=== PATIENT | female | born 1960 | race Caucasian/White ===

== ENCOUNTER 2017-04-21 11:11 | Emergency (ER) | payer BC, SELFPAY | END 2017-04-21 12:17 | disposition home or self-care (01) | PROVIDERS: Emergency Provider Nurse Practitioner; Visit Provider Nurse Practitioner | DX: L02.415 Cutaneous abscess of right lower limb (principal) | CPT/HCPCS: 99201 ==

== ENCOUNTER → 2020-06-16 06:48 | Outpatient (CLI) | payer BC, SELFPAY ==
--- NOTE | 2020-06-16 07:07 | CT_ITS ---
PROCEDURE: CT LUNG SCREENING CLINICAL INDICATION: H/O NICOTINE DEPENDENCE Current smoker 35 pack year smoking history No prior COMPARISON: No exams were available for comparison TECHNIQUE: The exam was performed on a GE Light Speed [address] scanner using 2.90 mGy CTDI. A low dose helical CT CHEST was performed on a multi-detector scanner. All CT scans at the facility use one or more dose reduction, viz: automated exposure control, ma/kV adjustment per patient size (including targeted exams where dose is matched to indication, i.e. head), or iterative reconstruction technique. The LDCT was performed in a facility that meets the criteria for the screening program. Data regarding this exam was submitted to ACR which is an approved registry. The order for this exam indicates that it came as a result of a lung cancer screening counseling shard decision-making visit that included all the elements required of such a visit including smoking cessation. The radiologist interpreting this exam meets the CMS criteria for the LDCT lung cancer screening program. The exam is reported using the Lung-RADS classification scale and reported to the ACR registry. NOTE: This study was performed for the specific purposes of lung cancer screening and is not an alternative to diagnostic chest CT. RADIATION DOSE: CTDI vol(CT dose Index-volume) = 2.90mG DLP (Dose Length Product) = 96.38 mGcm FINDINGS: There is a 4 mm subpleural nodular opacity in the right apex S3 I 14. There are mild atelectatic changes in the left lower lobe. OTHER FINDINGS: Coronary artery calcifications. COPD changes. There is thickening of the right minor fissure anteriorly nonspecific. There are scattered small axillary lymph nodes. IMPRESSION: Lung-RADS Category 2 Benign Appearance or Behavior Follow-up: Continue annual screening with LDCT in 12 months Dictated by: Benton York MD 06/21/2020 08:58 Benton York MD in [place] 06/21/2020 08:58
== END ==
PROVIDERS: PCP Internal Medicine Adolescent Medicine; Visit Provider Internal Medicine Adolescent Medicine
DX: Z87.891 Personal history of nicotine dependence (principal); Z12.2 Encounter for screening for malignant neoplasm of respiratory organs
CPT/HCPCS: 71271

== ENCOUNTER → 2020-07-07 08:10 | Outpatient (CLI) | payer BC, SELFPAY ==
[2020-07-07 10:09] LABS: Coronavirus 19 IgG Antibody Positive (Negative); Coronavirus 19 IgM Antibody Negative (Negative)
== END ==
PROVIDERS: Visit Provider Internal Medicine Gastroenterology
DX: Z01.818 Encounter for other preprocedural examination (principal); Z20.822 Contact with and (suspected) exposure to COVID-19; Z12.11 Encounter for screening for malignant neoplasm of colon
CPT/HCPCS: 36415; 86328

== ENCOUNTER 2020-07-09 06:44 | Day surgery (SDC) | payer BC, SELFPAY ==
[2020-07-02 13:29] VITALS: BMI 22.8
[2020-07-09] VITALS (7 sets, daily range): BP systolic 93–127; BP diastolic 65–83; PULSE 75–95; RESP 18; TEMP 36.3; O2SAT 96–97
--- NOTE | 2020-07-09 08:01 | P.PN_ITS ---
[facility] Anesthesia Checklist - Structural Data Admitted From: Home Planned Operative Procedure/s: colonoscopy Consent for Planned Operative Procedure(s) Verified: Yes - Airway Assessment C-Spine Mobility Assessed: Yes TMJ Mobility Assessed: Yes Dentition: Good Dentition - Neurological Assessment Level of Consciousness: Awake, Alert, Appropriate - Anesthesia Plan Anesthesia Risk discussed: Yes Anesthesia Plan: Verified ASA Class: II Anesthesia Type: MAC [facility] History I have reviewed the patient's past medical history: Yes Medical History: Denies:: Cancer, Diabetes Mellitus Type 1, Diabetes Mellitus Type 2, Internal Pacemaker, MRSA, Seizures *Have you ever received a pneumonia vaccine?: No *Have you received a flu vaccine this season?: Yes Anesthesia experience/problems:: none Other Surgeries: No: Pacemaker Amputation: No Fractures: No - *Social History Last grade of school completed: Advanced degree Smoking Status: Current every day smoker Tobacco Type: cigarettes # Packs/Day (cigarettes): 1 Smoking End Date: 06/27/20 Alcohol Intake: never Alcohol Intake Frequency:: holidays/special occasions only Substance Use Type: denies use *Occupational Status:: employed Housing: house Household Members: none *Travel in the last 8 weeks: None Family Hx:: Cancer
--- NOTE | 2020-07-09 08:32 | P.PCN_ITS ---
[facility] Procedure Note Procedure Note:: Colonoscopy Procedure Report: Colonoscopy with cold snare polypectomy Endoscopist: Los Sosa II, MD Referring physician: Loco Albert MD Date of Procedure: July 09, 2020 Equipment: Olympus 190 variable stiffness pediatric colonoscope Sedation: MAC sedation Indication: Mrs. Rios is a 60-year-old female who is here for screening colonoscopy. Her last colonoscopy was 32 years ago. She reports no abdominal pain, weight loss, change in her bowel habits or rectal bleeding. She reports no family history of colon cancer. Procedure: Prior to the procedure, a history and physical exam was performed, and patient's medications and allergies were reviewed. The risks, benefits and alternatives of the sedation and procedure were discussed with the patient. All questions were answered and informed consent was obtained. The patient was brought to the procedure room. Patient identification and proposed procedure were verified by the physician and the nurse. The patient was placed in a left lateral decubitus position and the scope was passed under direct vision. Throughout the procedure , the patient's blood pressure, pulse, and oxygen saturations were monitored continuously. The colonoscopy was accomplished without difficulty. The patient tolerated the procedure well. Findings: On digital rectal examination there was normal rectal tone. There were no external hemorrhoids. The colonoscope was introduced through the anal canal to the rectum and advanced to the cecum. The ileocecal valve and appendiceal orifice were identified. The scope was advanced a short distance into the ileum which appeared grossly normal. The scope was then withdrawn into the colon. There were 2 polyps (ascending x1 (4 mm) and descending x1 (4 mm)) which were both removed via cold snare polypectomy. The remainder of the cecum, ascending and transverse colon were normal. There were scattered diverticuli throughout the descending and sigmoid colon (LEFT colon). The rectum itself was normal. Upon retroflexion within the rectum there were 1-2 internal hemorrhoids. The preparation was excellent throughout with [place] Preparation Score of 9. The cecal time was 12 minutes. Impression: 1. Diminutive colonic polyps x2 2. Left-sided diverticulosis 3. Grade 1-2 internal hemorrhoids Plan: I will follow up the polyp pathology and recommend repeat colonoscopy again in 7-10 years based upon the polyp histology. I would encourage bulking fiber supplementation on a long-term daily maintenance basis.
== END 2020-07-09 09:35 | disposition home or self-care (01) ==
LOC: OUTP 06:45
PROVIDERS: PCP Internal Medicine Adolescent Medicine; Visit Provider Internal Medicine Gastroenterology
PROC: 0DJD8ZZ Inspection of Lower Intestinal Tract, Via Natural or Artificial Opening Endoscopic (ICD-10-PCS; CPT 45378; principal; 2020-07-09 08:00)
DX: Z12.11 Encounter for screening for malignant neoplasm of colon (principal); K63.5 Polyp of colon; K57.30 Diverticulosis of large intestine without perforation or abscess without bleeding; K64.0 First degree hemorrhoids; Z72.0 Tobacco use; Z88.2 Allergy status to sulfonamides
CPT/HCPCS: 45385

== ENCOUNTER 2020-11-28 14:23 | Emergency (ER) | payer BC, SELFPAY ==
[2020-11-28 15:05] VITALS: BP 136/85; PULSE 90; RESP 20; TEMP 36.9; O2SAT 97; BMI 21.6
[2020-11-28 15:41] VITALS: BP 136/85; PULSE 90; RESP 20; TEMP 36.9; O2SAT 97
--- NOTE | 2020-11-28 15:41 | HMH.EDUTC ---
[facility] Disposition Clinical Impression: COVID-19 virus test result unknown Otitis media Qualifiers: Otitis media type: suppurative Chronicity: acute Laterality: right Recurrence: non-recurrent Spontaneous tympanic membrane rupture: without spontaneous rupture Qualified Code(s): H66.001 - Acute suppurative otitis media without spontaneous rupture of ear drum, right ear Disposition: Home, Self-Care Condition on Discharge: Good Instructions: Middle Ear Infection, DI for COVID-19 (Suspected or Confirmed ), COVID-19: Protecting Yourself When You're at High Risk Additional Instructions: Start antibiotic as soon as possible and be sure to take as ordered for full length of time even though he should start feeling better in 24-48 hours. Tylenol or Motrin as needed for pain or fever Encourage fluids, water, Gatorade, Powerade, Pedialyte if infant/toddler/child Warm compresses often helps when placed over ear Return immediately for new or worsening symptoms no noticeable improvement in 48-72 hours and in 10-14 days to ensure the ears are return to baseline. Follow-up with primary care covid swab was sent to lab, call later today for results. self isolate until test results are known to be negative Prescriptions: cephALEXin [Cephalexin 500mg Tab] 500 mg PO BID 7 Days #14 tab Prescription Printed Fluconazole [Diflucan 100mg tablet] 100 mg PO ONCE 1 Days #1 tab Prescription Printed Referrals: Charlie Olivo MD [Primary Care Provider] - Time of Disposition: 16:04 Medical Decision Making - Piter Inquiry Pt receiving controlled substance: No Vital Signs: 11/28/20 15:05 11/28/20 15:41 Temperature 98.5 F 98.5 F Temperature Source Oral Pulse Rate 90 Pulse Rate [Right Brachial] 90 Respiratory Rate 20 20 Blood Pressure 136/85 Blood Pressure [Right Arm] 136/85 Blood Pressure Mean [Right Arm] 102 Blood Pressure Source [Right Arm] Automatic Cuff Blood Pressure Position [Right Arm] Sitting 02 Sat by Pulse Oximetry 97 Oxygen Delivery Method Room Air - Lab Data Lab Results 11/28/20 15:21: Strep Scn Rapid Clinic Negative Orders (Tests/Meds): ORDERS Category Date Time Status Covid-19 Nasal PCR ([facility]) Routine Lab 11/28/20 15:20 Received Strep Screen Confirmation Stat Micro 11/28/20 15:21 Received [facility] HPI - General Chief complaint: Urgent Treatment Center Stated complaint: covid exposure, symptoms Time Seen by Provider: 11/28/20 15:41 Mode of Arrival: Ambulatory Source of Information: Patient Limitations: No Limitations Description of Symptoms (Recalled from Triage Doc. by RN): COVID TEST D/T EXPOSURE. C/O HEADACHE, SORE THROAT AND COUGH HEENT Symptoms (Recalled from RN notes): Yes Resp Symptoms (Recalled from RN notes): No Skin Symptoms (Recalled from RN notes): No MS Symptoms (Recalled from RN notes): No Functional Status (Recalled from RN notes): WNL - History of Present Illness Provider Complaint: 60 yr old female presents for sore throat, ear pain,cough and body aches. has been exposed to covid - Related Data Previous Rx's Medication Instructions Recorded Fluconazole [Diflucan 100mg tablet] 100 mg PO ONCE 1 Days #1 tab 11/28/20 cephALEXin [Cephalexin 500mg Tab] 500 mg PO BID 7 Days #14 tab 11/28/20 Allergies Allergy/AdvReac Type Severity Reaction Status Date / Time levofloxacin [From LEVAQUIN] Allergy Intermediate Verified 07/09/20 06:56 Sulfa (Sulfonamide Allergy Verified 07/09/20 06:56 Antibiotics) - Worker's Comp Is this a Worker's Comp case?: No [facility] History - Hepatitis A Screen Drug use history?: No High risk sexual behaviors?: No History of sexually transmitted infection?: No Currently employed?: No Childcare worker?: No Do you have indoor plumbing?: Yes Do you have electricity?: Yes Attestation statement:: This patient has been screened for Hepatitis A risk factors. I have reviewed the patient's past medical history: Yes Medical History: D
[2020-11-28 15:42] LABS: UTC Strep Screen (Rapid) Negative (Negative)
== END 2020-11-28 16:10 | disposition home or self-care (01) ==
PROVIDERS: Emergency Provider Nurse Practitioner Family; PCP Internal Medicine Adolescent Medicine
DX: H66.001 Acute suppurative otitis media without spontaneous rupture of ear drum, right ear (principal); F17.210 Nicotine dependence, cigarettes, uncomplicated
CPT/HCPCS: 87880; 99203; G0463; U0003

== ENCOUNTER → 2020-12-13 07:40 | Outpatient (CLI) | payer BC, SELFPAY ==
--- NOTE | 2020-12-13 07:42 | MR_ITS ---
PROCEDURE: MR ANGIO HEAD WO CON CLINICAL INDICATION: HISTORY OF CEREBRAL ANEURYSM COMPARISON: CT HDWO CT HEAD W/O CONTRAST from 01/13/2017 TECHNIQUE: 3D [id number] images are obtained with multi slab reformats. FINDINGS: The vertebral arteries and basilar artery has an unremarkable appearance. There is persistent origin of the right posterior cerebral artery as a normal variant. There is some lobulation along the left aspect of the anterior communicating artery projecting inferiorly. This area measures approximately 3 mm. An anterior communicating artery aneurysm is suspected. This points inferiorly and toward the right. In addition, there is a focal protrusion projecting medially at the supraclinoid portion of the right internal carotid artery. This also is suspicious for an aneurysm measuring approximately 5 mm No AVMs or major intracranial occlusive process evident. Single-shot MRV is unremarkable. 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 Recommend CT angiogram of the head for confirmation. Dictated by: Benton York MD 12/17/2020 11:44 Benton York MD in [place] 12/17/2020 11:44
== END ==
PROVIDERS: PCP Internal Medicine Adolescent Medicine; Visit Provider Internal Medicine Adolescent Medicine
DX: Z86.79 Personal history of other diseases of the circulatory system (principal)
CPT/HCPCS: 70544

== ENCOUNTER → 2021-01-28 16:10 | Outpatient (CLI) | payer BC, SELFPAY | PROVIDERS: Visit Provider Student in an Organized Health Care Education/Training Program | DX: Z01.812 Encounter for preprocedural laboratory examination (principal); Z11.52 Encounter for screening for COVID-19 | CPT/HCPCS: C9803; U0003; U0005 ==

== ENCOUNTER → 2022-04-11 08:02 | Outpatient (POV) | payer BC, SELFPAY | PROVIDERS: Visit Provider Dermatology | DX: Z00.00 Encounter for general adult medical examination without abnormal findings (principal) ==

== ENCOUNTER → 2022-09-05 07:48 | Outpatient (POV) | payer BC, SELFPAY | PROVIDERS: Visit Provider Dermatology | DX: Z00.00 Encounter for general adult medical examination without abnormal findings (principal) ==

== ENCOUNTER 2023-09-06 09:48 | Outpatient (CLI) | payer BC, SELFPAY ==
--- NOTE | 2023-09-06 10:00 | CT_ITS ---
FINAL REPORT CLINICAL HISTORY: SCREENING CURRENT SMOKER 1PPD X45 YEARS FINDINGS: Axial images were obtained from the lung apex to the mid abdomen by computed tomography. Low-dose protocol was utilized. CTDl vol(mGy): 2.90 DLP (mGy-cm): 96.38 FINDINGS: There is no axillary adenopathy. Small mediastinal nodes are noted. There are mild coronary artery calcifications. The heart size is normal. There is no pericardial or pleural effusion. Limited images of the upper abdomen are unremarkable. Lung window images demonstrate mild emphysema and mild scarring. There is a 6 mm nodule at the minor fissure which is likely an intrafissural node. A pleural-based nodule is seen in the lateral right midlung measuring 4 mm. This is best seen on image 45. Several other less than 5 mm nodules are seen. There is a calcified granuloma in the left lower lobe. IMPRESSION: Lung RADS category 2. Recommend 12 month follow-up low-dose chest CT. Reviewed, Interpreted and Dictated by Donal Monroy III, MD Transcribed by Minerva Nath Authenticated and [facility][1]
== END 2023-09-06 23:59 | disposition home or self-care (01) ==
LOC: RAD 09:49
PROVIDERS: PCP Internal Medicine Adolescent Medicine; Visit Provider Internal Medicine Adolescent Medicine
DX: Z87.891 Personal history of nicotine dependence (principal); Z12.2 Encounter for screening for malignant neoplasm of respiratory organs
CPT/HCPCS: 71271

== ENCOUNTER 2025-03-17 14:55 | Outpatient (CLI) | payer BC, SELFPAY ==
--- OUTSIDE RECORDS SUMMARY | 2025-03-17 14:58 | XMS_ITS ---
Author Organization Unknown ENCOUNTERS Encounter Performer Location Date Diagnosis Diagnosis Status Emergency [place] [id number] [facility] [address] [place] [id number] [place]A *Note: Encounters from your own facility or health system may be excluded. Allergies, Adverse Reactions, Alerts Allergen Type Severity Identification Date Sulfa (Sulfonamide Antibiotics) drug allergy 0 [id number] levofloxacin drug allergy 3 [id number] Medications Name Date Quantity Days Supplied GPI Number
--- OUTSIDE RECORDS SUMMARY | 2025-03-17 14:59 | XMS_ITS | Clinical Summary ---
Author Organization [facility] Address [address] [place] [address] Care Team Providers Care Psychologist Experimental Name Role Phone Charlie Olivo MD Primary Care Provider + [phone] Allergies Active Allergy Reactions Criticality Noted Date Comments Levofloxacin Other (See Comments) 09/19/2024 Muscle tenderness Family History Medical History Relation Name Comments Breast cancer Mother Ovarian cancer Neg Hx Relation Name Status Comments Mother Social History Tobacco Use Types Packs/Day Years Used Date Smoking Tobacco: Never Assessed Comments No Sex and Gender Information Value Date Recorded Sex Assigned at Not on file Legal Sex Female 12:10 PM EDT Gender Identity Not on file Sexual Orientation Not on file Plan of Treatment Health Maintenance Due Date Last Done Comments ANNUAL PHYSICAL 1960 Annual Gynecologic Pelvic an d Breast Exam 1960 HEPATITIS C SCREENING 1962 TDAP/TD VACCINES (1 - Tdap) 1981 COLOGUARD 2007 COLON CANCER SCREENING 5 YEA R SIGMOIDOSCOPY 2007 COLONOSCOPY [address] CANCER SCREENING [address] COLONOGRAPHY 2007 FECAL OCCULT BLOOD TEST 2007 FIT Testing (1 year) 2007 Pneumococcal Vaccine 50+ (1 of 1 - PCV) 2012 INFLUENZA VACCINE 11/21/2024 06/22/2023 MAMMOGRAM 09/19/2026 09/19/2024, 08/22, 09/15/2022, Additional history exists ZOSTER VACCINE Completed 04/29/2020, 02/27/2020 Procedures Procedure Name Priority Date/Time Associated Diagnosis Comments MAMMO SCREENING DIGITAL TOMOSYNTHESIS BILATERAL W CAD Routine 09/19/2024 8:25 AM EDT Screening mammogram for breast cancer from Last 3 Months or Most Recently Relevant to Health Maintenance Results * Mammo Screening Digital Tomosynthesis Bilateral With CAD (09/19/2024 8:25 AM EDT) Anatomical Region Laterality Modality Breast N/A Mammography 09/20/2024 10:0 5 AM EDT Impressions 09/20/2024 10:07 AM EDT Negative bilateral mammogram. RECOMMENDATION: Continue annual screening mammography. BI-RADS CATEGORY 1, NEGATIVE. CAD was utilized. The standard false-negative rate of mammography is between 10% and 25%. Complex patterns or increased breast density will markedly elevate the false-negative rate of mammography. A letter, in lay terminology, with the results of this exam will be mailed to the patient. 09/20/2024 10:[address] Atilio Schwab MD on Narrative 09/20/2024 10:07 AM EDT DIGITAL SCREENING MAMMOGRAM WITH TOMOSYNTHESIS HISTORY: Screening Mammography. Low dose full field digital breast tomosynthesis imaging was performed with 2D and 3D acquisitions consisting of bilateral CC and MLO views. Examination is compared to prior examination dating back to 02/16/2015. Examination is read in conjunction with computer aided detection. FINDINGS: There are scattered areas of fibroglandular density. No suspicious masses, microcalcifications or areas of architectural distortion are present. Charlie Olivo MD IMG MAMMOGRAPHY ORDERABLES F inal Result from Last 3 Months or Most Recently Relevant to Health Maintenance Insurance [facility] [id number] [facility] Care Teams Psychologist Experimental Relationship Specialty Start Date End Date Charlie Olivo MD [address] [place] [facility] [address] [place] [address] PCP - General Adolescent Medicine 07/10/19
--- OUTSIDE RECORDS SUMMARY | 2025-03-17 14:59 | XMS_ITS | Clinical Summary ---
Author Organization [facility] Address [address] [place] [address] Care Team Providers Care Timber Deadener Name Role Phone Sofi Nguyễn MD Unavailable [phone] Charlie Olivo MD Primary Care Provider + [phone] Allergies Active Allergy Reactions Criticality Noted Date Comments Levofloxacin Unknown - Patient st ates they do not know rxn details Low 01/25/2017 Medications Multiple Vitamin (multivitamin) capsule Take 1 capsule by mouth 1 (one) time each day. Active omeprazole (PriLOSEC) [address] capsule Take 40 mg by mouth 1 (one) time each day. Do not crush or chew. Active mupirocin (Bactroban) 2 % ointment Apply 1 application topically 2 (two) times a day. Active St French Wort 150 MG tablet Take by mouth 1 (one) time each day. Active [place] Bergamot 650 MG tablet Take by mouth. A ctive omega-3 (Fish Oil) 1000 MG capsule Take 1 capsule (1,000 mg) by mouth 2 (two) times a day with meals. Active Plant Sterols and Stanols (CHOLEST OFF PO) Take by mouth. Activ e Active Problems Problem Noted Date Diagnosed Date Aneurysm 01/25/2017 Family History Medical History Relation Name Comments Diabetes Father Breast cancer Mother Multiple myeloma Mother Relation Name Status Comments Father Mother Social History Tobacco Use Types Packs/Day Years Used Date Smoking Tobacco: Every Day Cigarettes 0.5 30 Smokeless Tobacco: Never Tobacco Cessation:Ready to Q uit: Not Asked; Counseling Given: Not Answered Alcohol Use Standard Drinks/Week Comments Yes 0 (1 standard drink = 0.6 oz pur e alcohol) occasionally Comments Unknown Sex and Gender Information Value Date Recorded Sex Assigned at Not on file Legal Sex Female 7:35 PM EDT Gender Identity Not on file Sexual Orientation Not on file Last Filed Vital Signs Vital Sign Reading Time Taken Comments Blood Pressure 116/77 03/27/2024 2:26 PM EST Pulse 94 03/27/2024 2:26 PM EST Temperature 36.6 C (97.9 F) 02/02/2021 11:15 AM EDT Respiratory Rate 16 02/16/2022 1:29 PM EDT Oxygen Saturation 96% 03/27/2024 2:26 PM EST Inhaled Oxygen Concentration - - Weight 59 kg (130 lb) 03/27/2024 2:26 PM EST Height 162.6 cm (5' 4 ) 03/27/2024 2:26 PM EST Body Mass Index 22.31 03/27/2024 2:26 PM EST Plan of Treatment Health Maintenance Due Date Last Done Comments [facility]-Depression Screening 1962 [facility]-HIV Screening 1962 [facility]-Hepatitis C Screening 1962 [facility]-/Child/Adol SDOH Screenings 1962 [facility]- SDOH Screenings 1980 [facility]-Adult SDOH Screenings 1980 [facility]-DTaP,Tdap,and Td Vaccines (1 - Tdap) 1981 [facility]-Pneumococcal Vaccine: 50+ Years (1 of 2 - PCV) 1981 CT Colonography 2007 Colonoscopy 2007 FIT-DNA 2007 FIT 2007 FOBT 2007 Sigmoidoscopy 2007 [facility]-Colorectal Cancer Screening 2007 [id number] Vaccine ( season) 2024 01/26/2021, 12/29/2020 [facility]-Influenza Vaccine (#1) 2024 06/22/2023 [facility]-Breast Cancer Screening 09/18/202508/22, 09/19/2023, 09/15/2022, Additional history exists [facility]-RSV Vaccine: 60+ Years or (1 - 1-dose 75+ series) 2037 [facility]-Zoster Vaccines Completed 04/29/2020, 0 HPV Vaccines Aged Out No longer eligi ble based on patient's age to complete this topic [facility]-HIB Vaccines Aged Out No longer e ligible based on patient's age to complete this topic [facility]-Hepatitis A Vaccines Aged Out No longer eligible based on patient's age to complete this topic [facility]-IPV Vaccines Aged Out No longer e ligible based on patient's age to complete this topic [facility]-Rotavirus Vaccines Aged Out No lo nger eligible based on patient's age to complete this topic Insurance MARIE Advance Directives * Full Code (Latest Code Status on File) Date Activated Date Inactivated Comments 02/02/2021 11:12 AM 02/03/2021 2:36 AM Question Answer Comments Patient has decision-making capacity? Yes Care Teams Timber Deadener Relationship Specialty Start Date End Date Charlie Olivo MD [address] [place] [address] [place] [address] PCP - General 01/11/21 Sofi Nguyễn MD [address] [place] [address] Surgeon Radiology 01/11/21
== END 2025-03-17 23:59 | disposition home or self-care (01) ==
LOC: DIETICIAN 14:56
PROVIDERS: PCP Internal Medicine Adolescent Medicine
DX: R73.09 Other abnormal glucose (principal)
CPT/HCPCS: 97802

== ENCOUNTER 2025-03-31 06:47 | Outpatient (CLI) | payer BC, SELFPAY ==
--- OUTSIDE RECORDS SUMMARY | 2025-03-31 06:50 | XMS_ITS ---
Author Organization Unknown ENCOUNTERS Encounter Performer Location Date Diagnosis Diagnosis Status Emergency [place] [id number] [facility] [address] [id number] [place] *Note: Encounters from your own facility or health system may be excluded. Allergies, Adverse Reactions, Alerts Allergen Type Severity Identification Date Sulfa (Sulfonamide Antibiotics) drug allergy 0 [id number] levofloxacin drug allergy 3 [id number] Medications Name Date Quantity Days Supplied GPI Number
--- OUTSIDE RECORDS SUMMARY | 2025-03-31 06:50 | XMS_ITS | Clinical Summary ---
Author Organization [facility] Address [address] [place] [address] Care Team Providers Care Baseball Coach Name Role Phone Charlie Olivo MD Primary Care Provider + [phone] Allergies Active Allergy Reactions Criticality Noted Date [...] Recently Relevant to Health Maintenance Insurance [facility] [id number] [facility] Care Teams Baseball Coach Relationship Specialty Start Date End Date Charlie Olivo MD [address] [place] [facility] [address] [place] [address] PCP - General Adolescent Medicine 07/10/19
--- OUTSIDE RECORDS SUMMARY | 2025-03-31 06:50 | XMS_ITS | Clinical Summary ---
Author Organization [facility] Address [address] [place] [address] Care Team Providers Care Electrolog Operator Name Role Phone Sofi Nguyễn MD Unavailable [phone] Charlie Olivo MD Primary Care Provider [phone] Allergies Active Allergy Reactions Criticality Noted Date [...] mouth 1 (one) time each day. Active [place] Bergamot 650 MG tablet Take by mouth. [...] [facility]-HIV Screening 1962 [facility]-Hepatitis C Screening 1962 [facility]-Infant/Child/Adol SDOH Screenings 1962 [facility]- SDOH Screenings 1980 [facility]-Adult SDOH Screenings 1980 [facility]-DTaP,Tdap,and Td Vaccines (1 - Tdap) 1981 [facility]-Pneumococcal Vaccine: 50+ Years (1 of 2 - PCV) 1981 CT Colonography 2007 Colonoscopy 2007 FIT-DNA 2007 FIT 2007 FOBT 2007 Sigmoidoscopy 2007 [facility]-Colorectal Cancer Screening 2007 [id number] Vaccine ( season) 2024 01/26/2021, 12/29/2020 [facility]-Influenza [...] Patient has decision-making capacity? Yes Care Teams Electrolog Operator Relationship Specialty Start Date End Date Charlie Olivo MD [address] [place] [address] [place] [address] PCP - General 01/11/21 Sofi Nguyễn MD [address] [place] [address] Surgeon Radiology 01/11/21
--- NOTE | 2025-03-31 07:01 | CT_ITS ---
FINAL REPORT TECHNIQUE: Axial images were obtained from the lung apex to the mid abdomen by computed tomography. This study was performed with techniques to keep radiation doses as low as reasonably achievable (ALARA). Individualized dose reduction techniques using automated exposure control or adjustment of mA and/or kV according to the patient's size were employed. CLINICAL HISTORY: .current smoker 1ppd x44 years COMPARISON: 09/06/2023 FINDINGS: CHEST CT LOW DOSE CTDI vol (mGy): 2.90 DLP (mGy-cm): 96.38 There is no axillary adenopathy. There is no hilar or mediastinal adenopathy. The heart is normal in size. There is no pericardial or pleural effusion. There is a localized pleural thickening along the anterior minor fissure on image 32 of series 604. This is stable and on the coronal images appears more linear. There is a 3 mm nodule in the periphery of the right midlung on image 47 of series 3, stable. Few other scattered tiny densities are seen bilaterally are stable. No new mass or nodule is identified. Limited images of the upper abdomen are unremarkable. IMPRESSION: Pulmonary nodules as detailed above. Lung RADS category 2. Recommend 12 month follow-up low-dose chest CT. Reviewed, Interpreted and Dictated by Favian Almonte MD Transcribed by Alisha Lowe Authenticated and [facility]
== END 2025-03-31 23:59 ==
LOC: RAD 06:48
PROVIDERS: PCP Internal Medicine Adolescent Medicine
DX: Z12.2 Encounter for screening for malignant neoplasm of respiratory organs (principal); F17.210 Nicotine dependence, cigarettes, uncomplicated; R91.8 Other nonspecific abnormal finding of lung field
CPT/HCPCS: 71271